=== PATIENT | female | born 1965 | race Caucasian/White ===

== ENCOUNTER 2019-04-22 18:46 | Emergency (ER) | payer OTHER ==
[2019-04-22 18:58] VITALS: BP 124/79
--- NOTE | 2019-04-22 19:10 | UC ---
Bite Injury/Animal HPI - HPI Summary HPI Summary: She noticed a spot on her right upper arm today and is concerned that it may have been a tick bite. She did not see a tick. She does have a dog that gets ticks frequently. - History of Current Complaint Chief Complaint: MEAGANkin Stated Complaint: TICK BITE Time Seen by Provider: 04/22/19 19:04 Hx Obtained From: Patient Hx Last Menstrual Period: Jan 2013 Severity Currently: Mild Severity Initially: Mild Pain Intensity: 0 Onset/Duration: Sudden Onset Type of Bite: Animal - ? Character: Puncture - Allergies/Home Medications Allergies/Adverse Reactions: Allergies Allergy/AdvReac Type Severity Reaction Status Date / Time Penicillins Allergy Unknown Verified 04/22/19 18:58 Reaction Details Home Medications: Home Medications NK [No Home Medications Reported] 04/22/19 [History Confirmed 04/22/19] PMH/Surg Hx/FS Hx/Imm Hx Previously Healthy: Yes - Surgical History Surgical History: Yes Surgery Procedure, Year, and Place: left ovary removed with cyst - Social History Alcohol Use: None Substance Use Type: None Smoking Status (MU): Never Smoked Tobacco Review of Systems All Other Systems Reviewed And Are Negative: Yes Constitutional: Positive: Negative Skin: Positive: Other - Right arm ENT: Positive: Negative Physical Exam - Summary Physical Exam Summary: She is nontoxic in appearance with stable vitals Triage Information Reviewed: Yes Appearance: Well-Appearing, No Pain Distress Vital Signs: Initial Vital Signs Temp 98.4 F 04/22/19 18:53 Pulse 67 04/22/19 18:53 Resp 15 04/22/19 18:53 BP 124/79 04/22/19 18:53 Pulse Ox 97 04/22/19 18:53 Vital Signs Reviewed: Yes Neck exam: Normal Skin Exam: Other - She has a small puncture wound about 2 mm in diameter of surrounding erythema on her right posterior upper arm. The rest of her exam is unremarkable. Bite Injury Course/Dx - Course Course Of Treatment: However does have a puncture wound in the center. Not having a tick I have to consider that the tick got engorged and dropped off on its own. I recommended prophylaxis - Differential Dx/Diagnosis Provider Diagnosis: Tick bite Discharge ED - Sign-Out/Discharge Documenting (check all that apply): Patient Departure All imaging exams completed and their final reports reviewed: No Studies - Discharge Plan Condition: Stable Disposition: HOME Patient Education Materials: Tick Bite (ED) Referrals: Jolie Ly MD [Primary Care Provider] - - Billing Disposition and Condition Condition: STABLE Disposition: Home
[2019-04-22] MEDS ORDERED: DOXYcycline CAP(*) 100 MG PO ONE (19:11)
== END 2019-04-22 19:16 | disposition home or self-care (01) ==
LOC: UCEAST 18:46
DX: S40.861A Insect bite (nonvenomous) of right upper arm, initial encounter (principal); Z88.0 Allergy status to penicillin; W57.XXXA Bitten or stung by nonvenomous insect and other nonvenomous arthropods, initial encounter; Y92.9 Unspecified place or not applicable
CPT/HCPCS: 99212; A9270-GY; G0463